=== PATIENT | female | born 1955 | race Hispanic/Latino ===

== ENCOUNTER 2019-05-22 15:07 | Outpatient (CLI) | payer BC ==
--- NOTE | 2019-05-22 15:23 | RAD ---
XR Chest Pa Lat STANDARD HISTORY: Upper chest congestion. Chills. No Fever COMPARISON: None FINDINGS: The heart size is normal. The lungs are well expanded without focal areas of consolidation, pneumothorax or pleural effusions. There are degenerative changes in the spine. IMPRESSION: No radiographic evidence of acute cardiopulmonary process.
== END 2019-05-22 15:08 | disposition home or self-care (01) ==
LOC: BICRAD 15:07
PROVIDERS: ATTEND Family Medicine
DX: R68.83 Chills (without fever) (principal)
CPT/HCPCS: 36415; 71046; 80053; 81001; 85025; 86140; 87040; 87086

== ENCOUNTER 2023-07-18 09:39 | Outpatient (CLI) | payer MEDICARE | END 2023-07-18 09:40 | disposition home or self-care (01) | LOC: CT 09:39 | PROVIDERS: ATTEND Orthopaedic Surgery | DX: M17.12 Unilateral primary osteoarthritis, left knee (principal); M25.462 Effusion, left knee ==

== ENCOUNTER 2023-07-21 09:50 | Outpatient (CLI) | payer MEDICARE ==
[2023-07-21 11:49] LABS: #Basophils 0.1 10x3/uL (0.0-0.2); #Eosinphils 0.2 10x3/uL (0.0-0.5); #Monocytes 0.6 10x3/uL (0.0-1.1); #Neutrophils 5.8 10x3/uL (1.5-8.4); %Basophils 0.9 % (0.0-2.0); %Eosinophils 1.8 % (0.0-6.0); %Lymphocytes 25.8 % (18.0-47.0); %Monocytes 6.9 % (0.0-10.0); Hematocrit 43.4 % (34.9-44.5); Hemoglobin 14.3 g/dL (12.0-15.5); Mean Corpuscular HGB CONC 32.9 g/dL (32.0-36.0); Mean Corpuscular Hemoglobin 29.4 pg (27.0-33.0); Mean Corpuscular Volume 89.1 fl (81.6-98.3); Mean Platelet Volume 11.3 fl (7.4-10.4); Platelet Count 279 10x3/uL (150-450); RBC Distribution Width 13.6 % (11.5-14.5); Red Blood Cell (RBC) Count 4.87 10x6/uL (3.90-5.03)
[2023-07-21 12:05] LABS: INR-International Normal Ratio 0.9; Prothrombin Time 10.2 sec (9.5-12.1)
[2023-07-21 13:21] LABS: Anion Gap 14 mmol/L (10-20); BUN (Urea Nitrogen) 13 mg/dL (9.8-20.1); Calc. Creatinine Clearance 0 mL/min (70-130); Calcium 9.3 mg/dL (7.8-10.44); Carbon Dioxide 27 mmol/L (23-31); Chloride 102 mmol/L (98-107); Estimated GFR 93; Glucose 131 mg/dL (80-115); Potassium 4.2 mmol/L (3.5-5.1); Sodium 139 mmol/L (136-145)
== END 2023-07-21 09:51 | disposition home or self-care (01) ==
LOC: LABBT 09:50
PROVIDERS: ATTEND Orthopaedic Surgery
DX: Z01.818 Encounter for other preprocedural examination (principal); M17.12 Unilateral primary osteoarthritis, left knee
CPT/HCPCS: 80048; 85025; 85610; 87081; 93005; 93010

== ENCOUNTER 2023-07-25 05:50 | Observation (INO) | payer MEDICARE ==
[2023-07-21 11:20] VITALS: BMI 39.1
[2023-07-25] MEDS ORDERED: Tranexamic Acid 1,000 MG/10 ML VIAL ONE (06:05)
[2023-07-25] MEDS ORDERED: Vancomycin (BATCH) 1.5 GM/300 ML BAG ONE (06:05)
[2023-07-25] MEDS ORDERED: Sodium Chloride 0.9% 100 ML ONE ×2 (06:05→06:52)
[2023-07-25] MEDS ORDERED: Fentanyl 250 MCG/5 ML VIAL ONE (06:24)
[2023-07-25] MEDS ORDERED: PROPOFOL 40 ML ONE (06:24)
[2023-07-25] MEDS ORDERED: Midazolam HCl 2 mg/2 ml Vial ONE (06:25)
[2023-07-25] MEDS ORDERED: CEFAZOLIN 2 GM VIAL ONE (06:52)
[2023-07-25] MEDS ORDERED: Bupivacaine 0.25% HCL 30 ML VIAL ONE (06:52)
[2023-07-25] MEDS ORDERED: EPINEPHrine 1 MG/ML VIAL ONE (06:52)
[2023-07-25] MEDS ORDERED: Lidocaine 1% PF 5 ML VIAL ONE (07:25)
[2023-07-25] MEDS ORDERED: Bupivacaine HCl 0.5%/Epinephrine 1:200,000/PF 30 ml Vial ONE (07:25)
[2023-07-25] MEDS ORDERED: Dexamethasone 4 mg/ml Vial ONE (07:37)
[2023-07-25] MEDS ORDERED: Ondansetron PF 4 MG/2 ML Vial ONE ×2 (07:37→07:56)
[2023-07-25] MEDS ORDERED: Zolpidem Tartrate 5 MG TAB PO PRN ×2 (08:00→11:58)
[2023-07-25] MEDS ORDERED: HYDROcodone/Acetaminophen 10/325 mg Tablet PO PRN (08:00)
[2023-07-25] MEDS ORDERED: Ropivacaine 0.2% 550 ML 550 ML NERVE BLCK SCH (08:00)
[2023-07-25] MEDS ORDERED: Promethazine HCl 25 MG/ML VIAL IM PRN ×2 (08:00→11:58)
[2023-07-25] MEDS ORDERED: Ketorolac Tromethamine 30 MG (1 mL) VIAL ONE (09:17)
[2023-07-25] MEDS ORDERED: HYDROmorphone 0.5 MG/0.5 ML SYRINGE ONE ×2 (09:58→10:15)
[2023-07-25] MEDS ORDERED: fentaNYL 50 mcg/mL 1 mL Vial ONE ×2 (09:58→10:14)
[2023-07-25] MEDS ORDERED: diphenhydrAMINE 25 MG CAP PO PRN (11:58)
[2023-07-25] MEDS ORDERED: Acetaminophen 325 MG TAB PO PRN (11:58)
[2023-07-25] MEDS ORDERED: Ondansetron PF 4 MG/2 ML Vial IVP PRN (11:58)
[2023-07-25] MEDS: Senokot S 8.6-50 MG TAB PO SCH ×2 (12:33→19:59)
[2023-07-25] MEDS: Multivit, Therapeutic 1 TAB PO SCH (12:33)
[2023-07-25] MEDS: Aspirin 81 mg Enteric Coated Tablet PO SCH ×2 (12:34→19:58)
[2023-07-25] MEDS: Ferrous Gluconate 324 MG TAB PO SCH ×2 (12:34→19:59)
[2023-07-25] MEDS: HYDROcodone/Acetaminophen 10/325 mg Tablet PO PRN (12:35)
[2023-07-25] MEDS: Ketorolac Tromethamine 30 MG (1 mL) VIAL IVP SCH ×2 (14:04→15:29)
[2023-07-25] MEDS: Sodium Chloride 0.9% 1,000 ML IV SCH (14:06)
[2023-07-25] MEDS: CEFAZOLIN 2 GM in Sodium Chloride 0.9% 100 ML IVPB SCH (15:28)
[2023-07-25] MEDS: Ondansetron PF 4 MG/2 ML Vial IVP PRN (15:30)
[2023-07-25] MEDS ORDERED: Insulin Regular 300 UNITS/3 ML VIAL SC PRN (18:28)
[2023-07-25] MEDS ORDERED: Dextrose 5% in Water 1,000 ML IV PRN (18:28)
[2023-07-25] MEDS ORDERED: Glucagon 1 MG/ML KIT IM PRN (18:28)
[2023-07-25] MEDS ORDERED: Dextrose 50% Abboject 50 ML SYRINGE SLOW IVP PRN (18:28)
[2023-07-25] MEDS ORDERED: Dulaglutide [Trulicity] 1.5 MG/0.5 ML Pen.Injctr SC SCH (19:00)
[2023-07-25] MEDS: Atorvastatin Calcium 40 MG TAB PO SCH (19:58)
[2023-07-25] MEDS: Insulin Regular 300 UNITS/3 ML VIAL SC PRN (21:20)
[2023-07-26 05:57] LABS: #Monocytes 1.2 thou/uL (0.11-0.59); #Neutrophils 6.9 thou/uL (1.40-6.50); %Basophils 0.2 % (0.0-1.0); %Eosinophils 0.3 % (0.0-10.0); %Monocytes 11.7 % (0.0-10.0); %Neutrophils 66.3 % (42.0-75.0); Hematocrit 31.4 % (36.0-47.0); Hemoglobin 10.3 g/dL (12.0-16.0); Mean Corpuscular HGB CONC 32.8 g/dL (32.0-36.0); Mean Corpuscular Volume 91.5 fl (78.0-98.0); Mean Platelet Volume 11.7 fL (7.4-10.4); Platelet Count 197 10x3/uL (130-400); RBC Distribution Width 13.8 % (11.5-14.5); Red Blood Cell (RBC) Count 3.43 mill/uL (4.20-5.40); White Blood Cell (WBC) Count 10.4 10x3/uL (4.8-10.8)
[2023-07-26 06:01] LABS: Hematocrit 31.4 % (36.0-47.0); Hemoglobin 10.3 g/dL (12.0-16.0); Mean Corpuscular HGB CONC 32.8 g/dL (32.0-36.0); Mean Corpuscular Hemoglobin 30.1 pg (27.0-31.0); Mean Corpuscular Volume 91.8 fl (78.0-98.0); Mean Platelet Volume 11.8 fL (7.4-10.4); Platelet Count 206 10x3/uL (130-400); RBC Distribution Width 13.9 % (11.5-14.5); Red Blood Cell (RBC) Count 3.42 mill/uL (4.20-5.40); White Blood Cell (WBC) Count 10.3 10x3/uL (4.8-10.8)
[2023-07-26 06:18] LABS: Anion Gap 12 mmol/L (10-20); BUN (Urea Nitrogen) 13 mg/dL (9.8-20.1); Calc. Creatinine Clearance 121 mL/min (70-130); Calcium 8.7 mg/dL (7.8-10.44); Carbon Dioxide 26 mmol/L (23-31); Chloride 104 mmol/L (98-107); Estimated GFR 86; Glucose 202 mg/dL (80-115); Potassium 3.8 mmol/L (3.5-5.1); Sodium 138 mmol/L (136-145)
[2023-07-26] MEDS ORDERED: Non-Formulary Item 1 EACH (Omeprazole [Omeprazole] 20 MG Capsule.Dr) PO SCH (08:15)
[2023-07-26] MEDS: glipiZIDE 10 MG TAB PO SCH (08:20)
[2023-07-26] MEDS: Multivit, Therapeutic 1 TAB PO SCH (08:21)
[2023-07-26] MEDS: Losartan 25 MG TAB PO SCH (08:21)
[2023-07-26] MEDS: Hydrochlorothiazide 25 MG TAB PO SCH (08:21)
[2023-07-26] MEDS: Simethicone Chewable 80 MG TAB PO PRN (12:14)
[2023-07-26 13:37] VITALS: BP 145/73; TEMP 99.2
== END 2023-07-26 15:35 | disposition home or self-care (01) ==
LOC: SDC 05:50 → SURG B 11:58
PROVIDERS: ADMIT Orthopaedic Surgery; ATTEND Orthopaedic Surgery
PROC: 0SRD0JZ Replacement of Left Knee Joint with Synthetic Substitute, Open Approach (ICD-10-PCS; principal; 2023-07-25)
DX: M17.12 Unilateral primary osteoarthritis, left knee (principal); M19.011 Primary osteoarthritis, right shoulder; E11.9 Type 2 diabetes mellitus without complications; I10 Essential (primary) hypertension; K21.9 Gastro-esophageal reflux disease without esophagitis; E78.5 Hyperlipidemia, unspecified; Z86.16 Personal history of COVID-19; Z79.899 Other long term (current) drug therapy; Z88.8 Allergy status to other drugs, medicaments and biological substances; Z79.84 Long term (current) use of oral hypoglycemic drugs
CPT/HCPCS: 27447; 73560; 80048; 82962 ×2; 85025; 85027; 97110 ×2; 97116 ×2; 97530 ×2; A4306; C1713; C1776; C1889; J0171; J3010; J3370; 36415; 36416; J0665; J1100; J1170; J1815; J1885; J2250; J2405; J2704; J2795; J3490